=== PATIENT | male | born 1985 | race Hispanic/Latino ===

== ENCOUNTER 2024-12-15 13:19 | Emergency (ER) | payer SELFPAY ==
[~2024-12-15] VITALS: Ht 175.3 cm; Wt 83.0 kg
[~2024-12-15 13:19] MED LIST: CLARITIN10 M1 OR; NO CURRENT MEDS
[2024-12-15 13:25] VITALS: BP 125/86
[2024-12-15 13:38] LABS: BASO% 0.4 % (0-3); EOS% 1.4 % (0-8); HEMATOCRIT 38.5 % (39.0-50.0); HEMOGLOBIN 13.5 g/dl (14.0-18.0); IMMATURE GRANULOCYTES 0.1 % (0.0-5.0); LYMPH% 46.5 % (15-41); MEAN CELL VOLUME 82.4 fL CALC (80.0-100.0); MEAN CORPUSCULAR HGB 28.9 pG CALC (26.0-32.0); MEAN CORPUSCULAR HGB CONC 35.1 g/dL CAL (32.0-36.0); MONO% 9.8 % (2-13); NEUT# 3.06 thou/uL (1.82-7.42); NEUT% 41.8 % (42-76); RED BLOOD COUNT 4.67 mill/uL (4.70-6.10); RED CELL DISTRI WIDTH 12.1 % (11.5-15.5)
[2024-12-15 13:51] LABS: ALBUMIN 4.6 g/dL (3.2-5.0); ALKALINE PHOSPHATASE 93 u/l (38-126); ANION GAP 12 (6-22 (CALC)); BILIRUBIN, TOTAL 0.6 mg/dL (0.2-1.3); BUN 15 mg/dL (9-20); BUN/CREATININE RATIO 14 (12-20 (CALC)); CARBON DIOXIDE 29 mmol/l (22-30); CHLORIDE 103 mmol/l (95-108); ESTIMATED GFR 98 ML/MIN (>=90 (CALC)); LIPASE 207 u/l (23-300); POTASSIUM 4.1 mmol/l (3.5-5.1); SGOT/AST 65 u/l (17-59); SODIUM 139 mmol/l (137-146); TOTAL PROTEIN 8.3 g/dL (6.3-8.2)
[2024-12-15 14:00] VITALS: BP 109/75
[2024-12-15 14:26] LABS: URINE BILIRUBIN - DIPSTICK Negative (NEGATIVE); URINE BLOOD DIPSTICK Negative (NEGATIVE); URINE GLUCOSE - DIPSTICK Negative (NEGATIVE); URINE KETONE Negative (NEGATIVE); URINE LEUK ESTERASE Negative (NEGATIVE); URINE NITRITE - DIPSTICK Negative (Negative); URINE PH 8.5 (4.5-8.0); URINE PROTEIN - DIPSTICK Trace mg/dL (NEG-TRACE)
[2024-12-15 14:28] LABS: URINE COLOR Yellow
[2024-12-15 14:30] VITALS: BP 105/72
[2024-12-15 15:00] VITALS: BP 112/68
[2024-12-15 15:17] VITALS: BP 112/68
== END 2024-12-15 15:27 | disposition home or self-care (01) | DRG 313 ==
LOC: ED 13:19
PROVIDERS: Nurse Practitioner
DX: R07.89 Other chest pain (principal)